=== PATIENT | male | born 1985 ===

== ENCOUNTER 2020-12-03 18:52 | Emergency (ER) | payer SELFPAY ==
[2020-12-03 19:49] VITALS: BP 145/81
--- NOTE | 2020-12-03 21:20 | Emergency Department Report ---
ED General Adult HPI - General Chief complaint: Dental/Oral Stated complaint: DENTAL PAINS Time Seen by Provider: 12/03/20 20:56 Source: patient Mode of arrival: Ambulatory Limitations: No Limitations - History of Present Illness Initial comments: 35-year-old male patient presents emergency department with complaints of chronic dental pain worsening for 2 weeks. Patient states he was evaluated by a dentist, who told him he needed to see an oral surgeon for dental extraction. He has been unable to see an oral surgeon due to financial constraints. He is not currently on antibiotics. He is not currently taking any pain medication. He does not have a primary care provider. Denies fever, chills, jaw swelling, difficulty swallowing, hoarseness, sore throat, neck stiffness. Denies all other complaints at this time. - Related Data Previous Rx's Medication Instructions Recorded Last Taken Type Nystas/Diphen/Xyl Visc/Mylanta 30 ml MM Q4H PRN #1 bottle 12/03/20 Unknown Rx [Magic Mouthwash] Penicillin Vk [Veetids TAB] 500 mg PO QID 7 Days tablet 12/03/20 Unknown Rx Allergies Allergy/AdvReac Type Severity Reaction Status Date / Time No Known Allergies Allergy Unverified 12/03/20 19:54 ED Review of Systems ROS: Stated complaint: DENTAL PAINS Other details as noted in HPI Other: GENERAL: Negative for fever. ENT: Positive for dental pain. CARDIOVASCULAR: Negative for chest pain. PULMONARY: Negative for shortness of breath. GASTROINTESTINAL: Negative for abdominal pain. MUSCULOSKELETAL: Negative for back pain. NEUROLOGICAL: Negative for headache. INTEGUMENTARY: Negative for rash. ED Past Medical Hx - Past Medical History Previous Medical History?: Yes Hx Diabetes: Yes Additional medical history: Chronic Body Pain - Surgical History Past Surgical History?: No - Social History Smoking Status: Current Every Day Smoker Substance Use Type: None - Medications Home Medications: Home Medications Medication Instructions Recorded Confirmed Last Taken Type Nystas/Diphen/Xyl Visc/Mylanta 30 ml MM Q4H PRN #1 bottle 12/03/20 Unknown Rx [Magic Mouthwash] Penicillin Vk [Veetids TAB] 500 mg PO QID 7 Days tablet 12/03/20 Unknown Rx ED Physical Exam - General Limitations: No Limitations - Other Other exam information: General: Awake, appropriately interactive, no acute distress. Dental: Oral mucosa is moist. Diffusely poor dentition. Tenderness to palpation along the left upper molar with significant tooth decay. The gingiva appear normal. No fluctuance or evidence of periapical abscess. Sublingual, submental, and submandibular spaces all soft, without edema. No evidence for maxillary or buccal space abscess. No trismus. Patient is speaking in full sentences and handling secretions without difficulty. Neck: Supple. Full range of motion intact. Cardiovascular: Normal peripheral perfusion. Pulmonary: No respiratory distress. Patient is speaking normally without use of accessory muscles. Skin: No apparent rashes or lesions. Neurological: No facial asymmetry. Speech is clear. Follows commands. Patient is alert and oriented. Musculoskeletal: Moves all four extremities spontaneously with normal range of motion. Psych: Cooperative. Appropriate mood and affect. ED Course Vital Signs 12/03/20 19:35 Temperature 98.3 F Pulse Rate 72 Respiratory 16 Rate Blood Pressure 145/81 O2 Sat by Pulse 99 Oximetry ED Medical Decision Making - Medical Decision Making Differential diagnosis including but not limited to: dental abscess, Galo's angina, necrotizing gingivitis, dental caries Patient presents to the emergency department with complaints of ongoing dental issues. He has already been evaluated by a dentist and advised to see an oral surgeon for dental extraction. He is afebrile, hemodynamically stable, well- hydrated, speaking and handling secretions without difficulty. There is no dental abscess. No clinical evidence to suggest airway obstruction or systemic bacterial infection warranting further diagnostic work-up or emergent oral maxillofacial surgical consultation. Patient we discharged home with antibiotics, appropriate analgesics, and referrals to primary care providers, local dentist, and local oral surgeons. Emphasized the importance of calling tomorrow to schedule these appointments and arrange for definitive management of chronic dental issues. Patient expressed understanding and is agreeable to plan of care. Strict return precautions provided. History, exam, diagnostic testing, and current condition do not suggest worrisome pathology to warrant further testing, continued ED treatment, admission, or surgical evaluation at this point. Given the low probability of a significant medical illness, it would be more likely to result in harm than benefit to perform further testing at this stage. Discussed findings, presumptive diagnosis, need for follow-up and specific signs/symptoms that should prompt immediate return to the emergency department. Instructions were explained in detail to the patient in addition to giving written discharge information. Patient expressed understanding and was given the opportunity to ask questions, all of which were satisfactorily answered prior to discharge home. Critical care attestation.: If time is entered above; I have spent that time in minutes in the direct care of this critically ill patient, excluding procedure time. ED Disposition Clinical Impression: Chronic dental pain Disposition: TO HOME OR SELFCARE Is pt being admited?: No Does the pt Need Aspirin: No Condition: Stable Instructions: Diet and Dental Disease Additional Instructions: Take Tylenol every 4 hours and Motrin every 8 hours as needed for pain. Take Pencillin with food as directed. Use Magic Mouthwash as needed for pain. You must follow-up with dentist and/or oral surgeon for definitive management of ongoing dental issues. Call tomorrow to schedule an appointment. See referral information below. Follow-up with primary care provider to establish care. Call tomorrow to schedule an appointment. See referral information below. Return to the emergency department immediately for new or worsening symptoms. Specifically, return to the emergency department immediately for fever, difficulty swallowing, difficulty speaking, difficulty breathing, swelling of the face/jaw, or any other concerns. Prescriptions: Nystas/Diphen/Xyl Visc/Mylanta [Magic Mouthwash] 30 ml MM Q4H PRN #1 bottle PRN Reason: dental pain Penicillin Vk [Veetids TAB] 500 mg PO QID 7 Days tablet Referrals: DEISY JESUS MD [Staff Physician] - 3-5 Days [facility] [Outside] - 3-5 Days [facility] [Outside] - 3-5 Days [facility] [Outside] - 3-5 Days [facility] [Outside] - 3-5 Days [facility] [Outside] - 3-5 Days [facility] [Provider Group] - 3-5 Days [facility] [Referring] - 3-5 Days [facility] [Staff Physician] - 3-5 Days Time of Disposition: 21:22
== END 2020-12-03 21:40 | disposition home or self-care (01) ==
LOC: ED 18:52
DX: G89.29 Other chronic pain (principal); K08.89 Other specified disorders of teeth and supporting structures; E11.9 Type 2 diabetes mellitus without complications; F17.200 Nicotine dependence, unspecified, uncomplicated; Z79.899 Other long term (current) drug therapy
CPT/HCPCS: 99282